=== PATIENT | male | born 2000 ===

== ENCOUNTER 2018-02-14 17:43 | Emergency (ER) | payer OTHER ==
[2018-02-14 17:48] VITALS: BP 130/82
--- NOTE | 2018-02-14 17:51 | ER Report ---
History and Physical Time Seen By MD: 17:51 HPI/ROS CHIEF COMPLAINT: Rash to right shoulder HISTORY OF PRESENT ILLNESS: 18-year-old male patient presents to emergency room with complaint of rash to the right shoulder. Patient states that this been going on since Thursday. He states that he had an MRI on Thursday, and had had an injection to the shoulder for that. He states that they did clean the skin prior to the injection. He states that when he got home he is noticed that he started to have itching and hives to that area. He states that throughout the week and that has seemed to get worse. He states he is not taking any medication for this. He states that the itching is significant. He denies any numbness tingling in the hand. He denies any fevers, chills, nausea, vomiting or diarrhea. Allergies: Coded Allergies: latex (Verified Allergy, Unknown, 02/14/18) Uncoded Allergies: DYE (Allergy, Unknown, 02/14/18) Home Meds Active Scripts Triamcinolone Acetonide 0.1% Oint 15 Gm Tube (TRIAMCINOLONE ACETONIDE 0.1% 15 GM TUBE) 15 Gm Oint...g., 1 APPLIC TP BID, #30 GM Prov:MARGARET SAVAGE CHUTE TENDER 02/14/18 Past Medical/Surgical History Patient has a past medical history of alcohol use. Patient has surgical history of left leg surgery, surgery for pilonidal cyst. Reviewed Nurses Notes: Yes Constitutional Vital Sign - Last 24 Hours 02/14/18 17:48 Temp 96.9 Pulse 80 Resp 20 B/P (MAP) 130/82 Pulse Ox 94 O2 Delivery Room Air Physical Exam General appearance: Alert no distress. Respiratory: Chest is non tender, lungs are clear to auscultation. Cardiac: Regular rate and rhythm. ENT: Patient does have rash to right shoulder, does go on to the right chest. DIFFERENTIAL DIAGNOSIS: After history and physical exam differential diagnosis was considered for contact dermatitis Medical Decision Making ED Course/Re-evaluation ED Course Patient was admitted to an exam room, history and physical were obtained. Differential diagnoses were considered. On examination patient has a rash to the right side of his chest. Patient was given a dose of Benadryl. Reevaluation patient states the pruritus is significantly improved. I discussed that I would get discharge paperwork filled out and then come back and reevaluate him. While I was doing the discharge instructions thinking that we will go ahead and treat him with triamcinolone cream as I believe this is a reaction to the medicine that is used to clean the shoulder prior to the injection. I went and discussed with him, he states the itching is more improved. I discussed using triamcinolone cream to which he agreed. We'll go ahead and discharge patient home at this time. 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 Patient verbalized understanding and agreement with plan. Decision to Disposition Date: Feb 14, 2018 Decision to Disposition Time: 18:28 Depart Departure Latest Vital Signs Vital Signs Date Time Temp Pulse Resp B/P (MAP) Pulse Ox O2 Delivery O2 Flow Rate FiO2 02/14/18 17:48 96.9 80 20 130/82 94 Room Air Impression: Primary Impression: Contact dermatitis Condition: Improved Disposition: HOME OR SELF-CARE New Scripts Triamcinolone Acetonide 0.1% Oint 15 Gm Tube (TRIAMCINOLONE ACETONIDE 0.1% 15 GM TUBE) 15 Gm Oint...g. 1 APPLIC TP BID, #30 GM Prov: MARGARET SAVAGE 02/14/18 Patient Instructions: Contact Dermatitis (ED) Additional Instructions: Increase fluid intake. Use the Benadryl 25mg four times a day for the next 2-3 days. Follow up with your primary care provider with any concerns. Return to the ER if condition worsens. Problem Qualifiers Primary Impression: Contact dermatitis Contact dermatitis type: allergic Contact dermatitis trigger: drugs in contact with skin Qualified Codes: L23.3 - Allergic contact dermatitis due to drugs in contact with skin MARGARET SAVAGE Feb 14, 2018 17:51
[2018-02-14] MEDS ORDERED: diphenhydrAMINE 25 MG CAP PO ONE (18:00)
[2018-02-14] MEDS ORDERED: TRIA15OI20 TP (18:31)
== END 2018-02-14 18:40 | disposition home or self-care (01) ==
LOC: ER 17:53
DX: L23.3 Allergic contact dermatitis due to drugs in contact with skin (principal)
CPT/HCPCS: 99281; Q0163

== ENCOUNTER 2018-07-13 21:50 | Emergency (ER) | payer OTHER ==
[~2018-07-13 21:50] MED LIST: TRIA15OI20 TP
--- NOTE | 2018-07-13 21:54 | ER Report ---
History and Physical Time Seen By MD: 21:53 HPI/ROS CHIEF COMPLAINT: Left index finger injury HISTORY OF PRESENT ILLNESS: 18-year-old male presents ambulatory to the ER complaining of left index finger pain for 3 hours. He states he slammed his finger into a wall. He took Aleve at home with little improvement of his pain. At 6/10 pain aggravated by movement. There is quite a bit of stiffness at the PIP joint. Patient denies any other injuries. Patient describes a jamming injury. Allergies: Coded Allergies: chlorhexidine (Verified Allergy, Intermediate, rash, 07/13/18) iodine (Verified Allergy, Intermediate, RASH, 07/13/18) povidone-iodine (Verified Allergy, Intermediate, rash, 07/13/18) soap (Verified Allergy, Intermediate, rash, 07/13/18) latex (Verified Allergy, Unknown, 02/14/18) Uncoded Allergies: DYE (Allergy, Unknown, 02/14/18) Home Meds Active Scripts Triamcinolone Acetonide 0.1% Oint 15 Gm Tube (TRIAMCINOLONE ACETONIDE 0.1% 15 GM TUBE) 15 Gm Oint...g., 1 APPLIC TP BID, #30 GM Prov:MARGARET SAVAGE CREATIVE SERVICES DESIGNER 02/14/18 Reviewed Nurses Notes: Yes Old Medical Records Reviewed: Yes Hx Substance Use Disorder: No Hx Alcohol Use: Yes (3-4 BEERS WEEKLY) Constitutional Vital Sign - Last 24 Hours 07/13/18 07/13/18 07/13/18 07/13/18 21:50 21:53 21:54 21:55 Temp 97.8 Pulse ??? 69 82 Resp 16 B/P (MAP) 127/87 124/87 (99) Pulse Ox 96 96 O2 Delivery Room Air 07/13/18 22:00 B/P (MAP) 114/76 (89) Physical Exam General appearance: Alert no distress. Respiratory: Chest is non tender, lungs are clear to auscultation. Cardiac: Regular rate and rhythm Extremities: Examination of the left hand reveals some swelling and bruising around the PIP joint. There is decreased range of motion. Distal neurovascular functions intact in all digits. DIFFERENTIAL DIAGNOSIS: After history and physical exam differential diagnosis was considered for sprain, strain, fracture, dislocation, Medical Decision Making EKG/Imaging Imaging X-ray: Left index finger, 3 views was obtained. I viewed the images myself on the PACS system. My interpretation of the images is: No fracture no dislocation or malalignment. [The radiologist interpretation had no clinically significant variation from this interpretation]. ED Course/Re-evaluation ED Course Patient was admitted to an examination room. H&P was done. The differential diagnosis was considered. On clinical examination. Patient has soft tissue swelling and and decreased range of motion at the DIP joint. Diagnostic x-rays were performed. Which were unremarkable for obvious fracture. Results were discussed with the patient. He is placed in an aluminum padded splint to braces fracture. He is advised ibuprofen 600 mg 3 times a day with food. Patient advised ice packs. Decision to Disposition Date: Jul 13, 2018 Decision to Disposition Time: 22:16 Depart Departure Latest Vital Signs Vital Signs Date Time Temp Pulse Resp B/P (MAP) Pulse Ox O2 Delivery O2 Flow Rate FiO2 07/13/18 22:00 114/76 (89) 07/13/18 21:55 82 96 07/13/18 21:53 97.8 16 Room Air Impression: Primary Impression: Sprain of index finger Condition: Improved Disposition: HOME OR SELF-CARE Referrals: BRITTANY CHACON MD Patient Instructions: Finger Sprain (ED) Additional Instructions: Take Aleve 2 tablets twice daily with food Follow-up with hand surgeon Dr. Chacon if unimproved in one week Problem Qualifiers Primary Impression: Sprain of index finger Encounter type: initial encounter Sprain of finger site: interphalangeal joint Laterality: left Qualified Codes: S63.631A - Sprain of interphalangeal joint of left index finger, initial encounter JASKARAN ENAMORADO DO Jul 13, 2018 21:54
[2018-07-13 22:00] VITALS: BP 114/76
--- NOTE | 2018-07-13 22:35 | RADIOLOGY IMAGING REPORT ---
FACILITY: [facility] [place] PATIENT NAME: Sly Meyer : 2000 MR: [id number] V: [id number] EXAM DATE: ORDERING PHYSICIAN: JASKARAN ENAMORADO TECHNOLOGIST: Location: [facility] Patient: Sly Meyer : 2000 Visit/Account:[id number] Date of Sevice: 07/13/2018 FINGER LEFT 2ND DIGIT COMPARISONS: None. ADDITIONAL PERTINENT HISTORY: Injury FINDINGS: Osseous structures: Negative. Joint spaces: Negative. Surrounding soft tissues: Negative. IMPRESSION: Normal views of the left index finger. Report Dictated By: Tadeo Swift MD at 07/13/2018 10:29 PM Report E-Signed By: Tadeo Swift MD at 07/13/2018 10:32 PM WSN:[id number]
== END 2018-07-13 22:25 | disposition home or self-care (01) ==
LOC: ER 22:14
DX: S63.631A Sprain of interphalangeal joint of left index finger, initial encounter (principal)
CPT/HCPCS: 99283